=== PATIENT | female | born 1965 ===

== ENCOUNTER → 2018-10-25 15:37 | Outpatient (CLI) | payer OTHER ==
[2018-10-25 15:53] LABS: BASOPHILS 0.5 % (0-2); EOSINOPHILS 2.3 % (0-7); HEMATOCRIT 40.4 % (36.0-48.0); HEMOGLOBIN 14.1 g/dL (12-16); LYMPHOCYTES 37.1 % (15-50); MCH 34.2 pg (26.0-34.0); MCHC 34.9 g/dL (31.0-37.0); MCV 98.1 fL (80.0-100.0); MEAN PLATELET VOLUME 11.1 fL (7.4-10.4); MONOCYTES 13.6 % (2-11); NEUTROPHILS 46.5 % (40-80); PLATELET COUNT 275 10x3/uL (130-400); RBC 4.12 10x6/uL (4.00-5.40); RDW 12.5 % (11.5-14.5); WBC 4.3 10x3/uL (4.8-10.8)
== END | disposition home or self-care (01) ==
LOC: D.LABREF 15:37
PROVIDERS: ATTEND Internal Medicine Cardiovascular Disease
DX: D64.9 Anemia, unspecified (principal)